=== PATIENT | female | born 1945 | race Caucasian/White ===

== ENCOUNTER 2019-07-11 15:59 | Emergency (ER) | payer MEDICARE ==
[2019-07-11] MEDS ORDERED: Furosemide 40 MG/4 ML VIAL ONE (16:25)
--- NOTE | 2019-07-11 16:40 | RAD ---
PORTABLE CHEST ONE VIEW: 07/11/19 at 4:31 p.m. HISTORY: Dyspnea. COMPARISON: None. FINDING/IMPRESSION: The heart size is enlarged. The aorta is tortuous. There is pulmonary vascular congestion. There is a telectatic change at the left lung base with probable accompanying left pleural effusion. No pneumot horaces are seen. POS: [facility]
[2019-07-11 16:52] LABS: #Basophils 0.1 thou/uL (0.0-0.2); #Eosinphils 0.2 thou/uL (0.0-0.7); #Lymphocytes 1.1 thou/uL (1.20-3.40); #Neutrophils 9.9 thou/uL (1.40-6.50); %Basophils 0.5 % (0.0-1.0); %Eosinophils 1.7 % (0.0-10.0); %Lymphocytes 8.9 % (21.0-51.0); Anisocytosis SLIGHT = 6-15 cells (100X) (0-5/hpf); Elliptocytes SLIGHT = 2-5 cells (100X) (0-1/hpf); Hemoglobin 7.8 g/dL (12.0-16.0); Hypochromia SLIGHT = 6-15 cells (100X) (0-5/hpf); MDiff Complete? YES; Mean Corpuscular HGB CONC 28.6 g/dL (32.0-36.0); Mean Corpuscular Hemoglobin 23.3 pg (27.0-31.0); Mean Corpuscular Volume 81.2 fL (78.0-98.0); Platelet Count 151 thou/uL (130-400); Poikilocytosis SLIGHT = 6-15 cells (100X) (0-5/hpf); RBC Distribution Width 18.6 % (11.5-14.5); Red Blood Cell (RBC) Count 3.36 mill/uL (4.20-5.40); Schistocytes SLIGHT = 2-5 cells (100X) (0-1/hpf); Tear Drops SLIGHT = 2-5 cells (100X) (0-1/hpf); White Blood Cell (WBC) Count 12.3 thou/uL (4.8-10.8)
[2019-07-11 16:54] LABS: ALT (SGPT) 12 U/L (8-55); AST (SGOT) 14 U/L (5-34); Albumin 3.7 g/dL (3.4-4.8); Alkaline Phosphatase 79 U/L (40-110); Anion Gap 17 mmol/L (10-20); BUN (Urea Nitrogen) 36 mg/dL (9.8-20.1); Bilirubin, Total 0.5 mg/dL (0.2-1.2); CK (CPK) 149 U/L (29-168); Calc. Creatinine Clearance 0 mL/min (70-130); Carbon Dioxide 26 mmol/L (23-31); Chloride 104 mmol/L (98-107); Estimated GFR-MDRD 16; Globulin 3.7 g/dL (2.4-3.5); Glucose 154 mg/dL (83-110); Potassium 3.7 mmol/L (3.5-5.1); Protein, Total 7.4 g/dL (6.0-8.3); Sodium 143 mmol/L (136-145)
[2019-07-11 18:40] LABS: Bilirubin Negative (Negative); Blood, Urine Negative (Negative); Clarity Clear (Clear); Glucose, Urine (Dipstick) Negative (Negative); Leukocyte Small (Negative); Nitrite Negative (Negative); Protein, Urine (Dipstick) 100 mg/dL (Neg-Trace); Urobilinogen 0.2 mg/dL (Less than 2)
[2019-07-11 18:42] LABS: Bacteria/HPF 3+ HPF (None Seen); RBC/HPF 0-3 HPF (0-3); Squamous Epithelial 0-3 HPF (0-3)
[2019-07-11 18:43] LABS: Other Microscopic Description C&S SET UP
== END 2019-07-11 18:22 | disposition short-term general hospital (02) ==
LOC: MADERS 15:59
DX: I13.0 Hypertensive heart and chronic kidney disease with heart failure and stage 1 through stage 4 chronic kidney disease, or unspecified chronic kidney disease (principal); I50.9 Heart failure, unspecified; N18.4 Chronic kidney disease, stage 4 (severe); R79.89 Other specified abnormal findings of blood chemistry; D50.9 Iron deficiency anemia, unspecified; E03.9 Hypothyroidism, unspecified; E66.9 Obesity, unspecified; J44.9 Chronic obstructive pulmonary disease, unspecified; Z79.1 Long term (current) use of non-steroidal anti-inflammatories (NSAID); Z79.899 Other long term (current) drug therapy; Z79.891 Long term (current) use of opiate analgesic
CPT/HCPCS: 36415; 51702; 71045; 80053; 81003; 81015; 82550; 82553; 83880; 84484; 85025; 85379; 87077; 87086; 87186; 93005; 94760; 96374; J1940

== ENCOUNTER 2019-08-09 16:30 | Inpatient (IN) | payer MEDICARE ==
[2019-08-09] MEDS ORDERED: Non-Formulary Item 1 EACH (Fluticasone/Umeclidin/Vilanter [Trelegy Ellipta 100-62.5-25] 1 INH PRN (18:31)
[2019-08-09] MEDS ORDERED: Budesonide 0.5 MG/2 ML NEB NEB SCH (19:00)
[2019-08-09] MEDS: Acetaminophen 500 MG TAB PO PRN (19:51)
[2019-08-09] MEDS: hydrALAZINE 25 MG TAB PO SCH ×2 (19:51→19:55)
[2019-08-09] MEDS: Apixaban 2.5 MG TAB PO SCH (20:12)
[2019-08-09] MEDS: Atorvastatin Calcium 10 MG TAB PO SCH (20:13)
[2019-08-09] MEDS: Pregabalin 50 MG CAP PO SCH (20:13)
[2019-08-09] MEDS ORDERED: MOMETASONE INH SCH (21:00)
[2019-08-09] MEDS ORDERED: Non-Formulary Item 1 EACH (Pravastatin Sodium [Pravastatin Sodium] 80 MG) PO SCH (21:00)
[2019-08-10] MEDS: hydrALAZINE 25 MG TAB PO SCH ×3 (06:02→20:20)
[2019-08-10] MEDS: Levothyroxine Sodium 75 MCG TAB PO SCH (06:02)
--- NOTE | 2019-08-10 08:35 | HP ---
PRIMARY CARE PHYSICIAN: Out of town/Dr. Farris [facility]. CARDIOLOGY: Dr. Reeves. GENERAL SURGEON: Dr. Geller. SIMULATION ANALYST: Dr. Brantley. REASON FOR ADMISSION: [facility] for skilled rehab after recent hospitalization. HISTORY OF THE PRESENT ILLNESS AND HOSPITAL COURSE: Ms. Carter is a very pleasant 73-year-old female with history of hypertension, hypothyroidism, CHF,residential use of anitcoagulant for Afib, dyslipidemia,diabetestype 2. and obesity. The patient was recently admitted to [facility] due to acute hypoxic respiratory failure on 07/11/2019. This was associated with acute on chronic renal failure and congestive heart failure exacerbation. Her most current 2D echo showed left ventricular ejection fraction of 45% to 55%. She was also treated with ceftriaxone for E coli urinary infection. The patient also received intravenous albumin for renal failure. While she was being treated in the hospital, she had an acute onset of shortness of breath that showed an x-ray of worsening pulmonary edema. She then required an ICU admission and was treated with BiPAP. She underwent an ultrasound-guided thoracentesis. The fluid revealed transudative. Cytology showed lymphocytes, reactive mesothelial cells and neutrophils. No malignant cells were identified. Her renal function continued to worsen at that time. She then underwent placement of right femoral vein triple-lumen Trialysis catheter for hemodialysis. She was initiated on hemodialysis with improvement in her symptoms. On July 31, she underwent right internal jugular cuffed tunneled hemodialysis catheter, left internal jugular line, exploration of right arm, right wrist antecubital area. It was reported that per ultrasound, the patient's were showing good veins, but veins were too small for fistula. After she was stabilized, she became physically deconditioned, needing further rehab for strengthening prior to going back to the home environment. The patient was then discharged on 2019. Prior to admission to [facility], the patient has had a renal dialysis in [facility]. She reported today upon admission that her left internal jugular line was removed and a new fistula was inserted on the left arm, needing followup appointment with Dr Geller, in 2-3 weeks per recommendations. When seen, the patient was with and later daughter came in. The patient was awake, alert, generally weak-looking. She reports that she could hardly get up on her own yet. She is max assist at this time in getting up and out of bed. Overall, she states that she feels a whole lot better. The patient reports an apparent issue regarding her breathing treatments. She states that she had never had any breathing treatments all her life and she reports that she is very uncomfortable taking the medicine all day long. She is currently on DuoNeb q.6 hours scheduled and Budesonide b.i.d. She is tolerant to room air at this time. No other issues reported. PAST MEDICAL HISTORY: Diabetes type 2, hypothyroidism, hypertension, CHF, dyslipidemia, and chronic anemia, obesity, chronic kidney disease. COPD, questionable, per records, the patient denies having one. FAMILY HISTORY: Noncontributory. SOCIAL HISTORY: She denies smoking, alcohol, or illicit drug use. PAST SURGICAL HISTORY: Cholecystectomy, hysterectomy. ALLERGIES: NKDA. TRANSFER MEDICATIONS: 1. Acetaminophen 1000 mg p.o. q.6 hours p.r.n. 2. Eliquis 2.5 mg p.o. b.i.d. 3. Aspirin 81 mg p.o. daily. 4. Atorvastatin 20 mg p.o. at bedtime. 5. Budesonide 0.5 mg neb b.i.d. 6. Cholecalciferol 1000 mg p.o. daily. 7. Retacrit 10,000 units IVP Monday, Monday, and Monday. 8. Fluticasone inhaler q.hourly p.r.n. 9. Hydralazine 25 mg t.i.d. 10. Insulin Lantus 10 units q.a.m. 11. DuoNeb q.6 scheduled. 12. Levothyroxine 75 mcg p.o. q.a.m. 13. Pravastatin 80 mg p.o. at bedtime. 14. Pregabalin 50 mg p.o. b.i.d. REVIEW OF SYSTEMS: GENERAL: Denies fever and chills. Reports fatigue and general weakness. No loss of appetite with intentional loss about 65 pounds after recent hospitalization. HEENT: No acute visual changes or hearing changes. RESPIRATORY: As per HPI. No active shortness of breath, wheezing, sputum production, pain with breathing. CARDIO: Denies chest pain, palpitations, reports improved generalized edema, reports dyspnea on exertion. No paroxysmal nocturnal dyspnea. GI: No nausea, vomiting, abdominal pain, rectal bleeding, diarrhea. Reports intermittent constipation. GENITOURINARY: No dysuria, hematuria, frequency, urgency, incontinence. MUSCULOSKELETAL: Denies joint effusion, erythema. SKIN: Reports multiple bruises from recent hospitalization and postop site on the left arm. No pruritus. No jaundice. NEURO: No focal numbness or focal weakness. Gait; unsteady secondary to general weakness. PSYCH: No depression, anxiety, or insomnia. PHYSICAL EXAMINATION: VITAL SIGNS: Temperature 98.3, pulse 57, respirations 16, O2 saturation 96% on room air. Blood pressure 132/63, weight 234 pounds, height 5 feet 8 inches. GENERAL: The patient is awake, alert, and oriented x3. Generally weak-looking, fatigued-looking elderly, comfortable in bed, not in distress. Family is at bedside during examination. HEENT: Normocephalic, atraumatic. PERRL. Intact EOM. Nonicteric sclerae. Oral mucosa is moist. NECK: Supple. No LAD. No thyromegaly. Flat JVD, CHEST: Normal excursion. Nonlabored breathing. LUNGS: Good air movements, symmetrical; Diminished bases. No rales. No crackles. No rhonchi. No wheezing. CARDIAC: RRR. Normal S1 and S2. Grade 2-3 murmurs. ABDOMEN: Obese, limiting exam, normoactive bowel sounds. Nontender. No rebound or guarding. Negative CVA tenderness bilaterally. EXTREMITIES: Lower extremities, no bipedal edema. Upper extremities with localized swelling on the left upper arm, where the new fistula is located. NEUROLOGIC: Nonfocal. DTRs 2+. Spontaneous speech. Alert and oriented x3. Gait unsteady. LABORATORY STUDIES: Most recent labs and tests; hemoglobin ranges between 8.5 to 8.9 with latest of 8.6 on 08/09/2019, hematocrit 27.9. Chemistry on 08/08, creatinine 4.46, estimated GFR 10. ASSESSMENT AND PLAN: 1. Severe debility. 2. Acute hypoxic respiratory failure, improved. 3. Acute on chronic systolic congestive heart failure, [place] heart Association Class III. 4. Escherichia coli urinary tract infection, treated. 5. Hyponatremia, improved to 134, as of 08/07/2019. 6. Diabetes type 2, insulin requiring. 7. Anemia. 8. Dyslipidemia. 9. Long standing Atrial fibrillation. On chronic use of Eliquis. . 10. End-stage renal disease, dialysis dependent.. 11. Hypothyroidism 12. Questionable chronic obstructive pulmonary disease 13. Unsteady gait. 14. Morbid obesity . 15. The patient is admitted to [facility] for skilled rehab. PT, OT eval and treat. Continue all current medications as modified per list. Dialysis M-- as previously scheduled. Family will take the patient for dialysis as scheduled. 16. To hold Inhaled steroid per patient's request. Duoneb Q 6 prn. 17. Routine CBC monitoring while in SNF. 18. Deep venous thrombosis prophylaxis: patient is already on Eliquis. 19. Further recommendations depending on the hospital course. ESTIMATED LENGTH OF STAY: 2 to 3 weeks. CODE STATUS: The patient reports FULL CODE. . Family is in agreement with the patient's wishes. The patient will be transferred to Dr. Marion's care in a.m, to cover in my absence. Job ID: [id number] [facility]
[2019-08-10] MEDS ORDERED: Prevnar 13-Val Conj/PF 0.5 ML SYRINGE IM ONE (09:00)
[2019-08-10] MEDS: Pregabalin 50 MG CAP PO SCH ×2 (09:03→20:22)
[2019-08-10] MEDS: Apixaban 2.5 MG TAB PO SCH ×2 (09:04→20:20)
[2019-08-10] MEDS: Aspirin Chewable 81 MG TAB PO SCH (09:04)
[2019-08-10] MEDS: Lantus 1000 UNITS/10 ML VIAL SC SCH (09:05)
[2019-08-10] MEDS: Atorvastatin Calcium 10 MG TAB PO SCH (20:20)
[2019-08-11] MEDS: hydrALAZINE 25 MG TAB PO SCH ×3 (03:34→19:16)
[2019-08-11] MEDS: Levothyroxine Sodium 75 MCG TAB PO SCH (05:11)
[2019-08-11] MEDS: Lantus 1000 UNITS/10 ML VIAL SC SCH (08:57)
[2019-08-11] MEDS: Apixaban 2.5 MG TAB PO SCH ×2 (08:58→20:47)
[2019-08-11] MEDS: Aspirin Chewable 81 MG TAB PO SCH (08:58)
[2019-08-11] MEDS: Pregabalin 50 MG CAP PO SCH ×2 (08:58→20:48)
[2019-08-11] MEDS: Acetaminophen 500 MG TAB PO PRN (19:16)
[2019-08-11] MEDS: Atorvastatin Calcium 10 MG TAB PO SCH (20:46)
[2019-08-12] MEDS: hydrALAZINE 25 MG TAB PO SCH ×3 (02:20→21:08)
[2019-08-12] MEDS: Levothyroxine Sodium 75 MCG TAB PO SCH (05:26)
[2019-08-12] MEDS ORDERED: EPOETIN ALFA-EPBX (NON-ESRD) 10,000 UNIT/ML VIAL IVP SCH (09:00)
[2019-08-12] MEDS: Pregabalin 50 MG CAP PO SCH ×2 (09:05→21:09)
[2019-08-12] MEDS: Apixaban 2.5 MG TAB PO SCH ×2 (09:06→21:08)
[2019-08-12] MEDS: Lantus 1000 UNITS/10 ML VIAL SC SCH (09:06)
[2019-08-12] MEDS: Aspirin Chewable 81 MG TAB PO SCH (09:06)
[2019-08-12] MEDS ORDERED: EPOETIN ALFA-EPBX (ESRD) 10,000 UNIT/ML VIAL IVP SCH (13:30)
--- NOTE | 2019-08-12 15:00 | PRG ---
DATE OF SERVICE: 08/12/2019 SUBJECTIVE: The patient is seen and examined at the bedside. Has no complaints at this time. Denies any chest pain or shortness of breath. She states that she has tolerated dialysis well. She still reports generalized weakness. OBJECTIVE: VITAL SIGNS: Temperature 97.1, pulse 51, respirations 18, oxygen 99% on room air, and blood pressure 156/69. GENERAL: The patient is alert and oriented x3, in no distress. HEENT: Extraocular muscles intact. Moist mucous membranes. CARDIOVASCULAR: Rate is slightly bradycardic, otherwise normal S1 and S2. No murmurs, rubs, or gallops. LUNGS: Clear to auscultation bilaterally. No crackles, wheezes, or rhonchi. EXTREMITIES: Moves all extremities well. Normal bulk and tone. No peripheral edema. NEUROLOGICAL: Cranial nerves II through XII intact grossly. PSYCH: No anxiety or depression noted. ASSESSMENT AND PLAN: The patient is a 73-year-old female with multiple medical comorbidities, who was admitted for physical rehabilitation. 1. Physical deconditioning. The patient will continue with physical therapy and occupational therapy, which have been ordered. 2. End-stage renal disease, on hemodialysis. Dialysis has been initiated on Monday, Wednesdays, and Fridays, and the patient has dialysis today. 3. Anemia of chronic renal disease. Continue the erythropoietin, which will be administered with dialysis. 4. Chronic obstructive pulmonary disease. The patient's home regimen has been resumed. 5. Diabetes. Continue home insulin regimen. 6. Hypothyroidism. Continue Synthroid. 7. Systolic chronic heart failure with reduced ejection fraction. The patient is stable from respiratory standpoint. 8. Dietary modifications. Speech therapy evaluated the patient over the weekend and dietary instructions are as follows, no straws, liquids, nectar thick extra sauce and gravy, small sips by cup. VitalStim was also recommended. Job ID: [id number]
[2019-08-12] MEDS: Atorvastatin Calcium 10 MG TAB PO SCH (21:09)
[2019-08-12] MEDS: Acetaminophen 500 MG TAB PO PRN (23:43)
[2019-08-13] MEDS: hydrALAZINE 25 MG TAB PO SCH ×3 (04:13→20:00)
[2019-08-13] MEDS: Acetaminophen 500 MG TAB PO PRN ×2 (04:43→20:09)
[2019-08-13] MEDS: Levothyroxine Sodium 75 MCG TAB PO SCH (05:04)
[2019-08-13] MEDS: Apixaban 2.5 MG TAB PO SCH ×2 (08:13→20:10)
[2019-08-13] MEDS: Pregabalin 50 MG CAP PO SCH ×2 (08:13→20:11)
[2019-08-13] MEDS: Lantus 1000 UNITS/10 ML VIAL SC SCH (08:15)
[2019-08-13] MEDS: Aspirin Chewable 81 MG TAB PO SCH (08:15)
[2019-08-13] MEDS: Atorvastatin Calcium 10 MG TAB PO SCH (20:09)
[2019-08-14] MEDS: hydrALAZINE 25 MG TAB PO SCH ×3 (03:58→22:17)
[2019-08-14 05:58] LABS: Hemoglobin 9.2 g/dL (12.0-16.0); Platelet Count 145 thou/uL (130-400)
[2019-08-14] MEDS: Levothyroxine Sodium 75 MCG TAB PO SCH (06:35)
[2019-08-14] MEDS: Apixaban 2.5 MG TAB PO SCH ×2 (07:57→22:14)
[2019-08-14] MEDS: Lantus 1000 UNITS/10 ML VIAL SC SCH (07:57)
[2019-08-14] MEDS: Pregabalin 50 MG CAP PO SCH ×2 (07:57→22:14)
[2019-08-14] MEDS: Aspirin Chewable 81 MG TAB PO SCH (07:57)
[2019-08-14] MEDS ORDERED: Dextrose 50% Abboject 50 ML SYRINGE SLOW IVP PRN (13:23)
[2019-08-14] MEDS ORDERED: Dextrose 5% in Water 1,000 ML IV PRN (13:23)
[2019-08-14] MEDS: Atorvastatin Calcium 10 MG TAB PO SCH (22:14)
[2019-08-15] MEDS: hydrALAZINE 25 MG TAB PO SCH ×3 (05:18→20:02)
[2019-08-15] MEDS: Levothyroxine Sodium 75 MCG TAB PO SCH (05:19)
[2019-08-15] MEDS: Apixaban 2.5 MG TAB PO SCH ×2 (08:34→20:02)
[2019-08-15] MEDS: Aspirin Chewable 81 MG TAB PO SCH (08:34)
[2019-08-15] MEDS: Pregabalin 50 MG CAP PO SCH ×2 (08:34→20:03)
[2019-08-15] MEDS: Lantus 1000 UNITS/10 ML VIAL SC SCH (08:35)
[2019-08-15] MEDS: HumaLOG 300 UNITS/3 ML VIAL SC PRN ×2 (12:18→17:08)
[2019-08-15 15:05] VITALS: BMI 36.3
[2019-08-15] MEDS: Atorvastatin Calcium 10 MG TAB PO SCH (20:02)
[2019-08-16] MEDS: hydrALAZINE 25 MG TAB PO SCH ×3 (04:57→21:15)
[2019-08-16] MEDS: Levothyroxine Sodium 75 MCG TAB PO SCH (05:00)
[2019-08-16] MEDS: Apixaban 2.5 MG TAB PO SCH ×2 (09:07→21:16)
[2019-08-16] MEDS: Aspirin Chewable 81 MG TAB PO SCH (09:08)
[2019-08-16] MEDS: Pregabalin 50 MG CAP PO SCH ×2 (09:08→21:19)
[2019-08-16] MEDS: Lantus 1000 UNITS/10 ML VIAL SC SCH (09:08)
[2019-08-16] MEDS: HumaLOG 300 UNITS/3 ML VIAL SC PRN ×2 (09:09→12:03)
[2019-08-16] MEDS: Atorvastatin Calcium 10 MG TAB PO SCH (21:16)
[2019-08-16] MEDS: Acetaminophen 500 MG TAB PO PRN (21:19)
[2019-08-17] MEDS: hydrALAZINE 25 MG TAB PO SCH ×3 (04:56→21:32)
[2019-08-17] MEDS: Levothyroxine Sodium 75 MCG TAB PO SCH (05:07)
[2019-08-17] MEDS: Pregabalin 50 MG CAP PO SCH ×2 (08:13→21:36)
[2019-08-17] MEDS: Lantus 1000 UNITS/10 ML VIAL SC SCH (08:14)
[2019-08-17] MEDS: Apixaban 2.5 MG TAB PO SCH ×2 (08:14→21:37)
[2019-08-17] MEDS: HumaLOG 300 UNITS/3 ML VIAL SC PRN (08:14)
[2019-08-17] MEDS: Aspirin Chewable 81 MG TAB PO SCH (08:14)
[2019-08-17] MEDS ORDERED: Dicyclomine 20 MG TAB PO PRN (20:10)
[2019-08-17] MEDS ORDERED: Docusate 100 MG CAP PO PRN (20:10)
[2019-08-17] MEDS: Acetaminophen 500 MG TAB PO PRN (21:35)
[2019-08-17] MEDS: Atorvastatin Calcium 10 MG TAB PO SCH (21:36)
[2019-08-17] MEDS ORDERED: Dicyclomine 10 MG CAP ONE ×2 (22:09→22:10)
[2019-08-17] MEDS: Dicyclomine 10 MG CAP PO PRN (22:18)
[2019-08-18] MEDS: Acetaminophen 500 MG TAB PO PRN ×2 (04:47→10:20)
[2019-08-18] MEDS: hydrALAZINE 25 MG TAB PO SCH ×2 (04:48→11:56)
[2019-08-18] MEDS: Levothyroxine Sodium 75 MCG TAB PO SCH (04:56)
[2019-08-18 06:58] VITALS: TEMP 97.9
[2019-08-18] MEDS: Dicyclomine 10 MG CAP PO PRN ×2 (07:55→12:55)
[2019-08-18] MEDS: Pregabalin 50 MG CAP PO SCH (07:56)
[2019-08-18] MEDS: Apixaban 2.5 MG TAB PO SCH (08:00)
[2019-08-18] MEDS: Aspirin Chewable 81 MG TAB PO SCH (08:00)
[2019-08-18] MEDS: Lantus 1000 UNITS/10 ML VIAL SC SCH (08:01)
[2019-08-18] MEDS ORDERED: Simethicone Chewable 80 MG TAB PO PRN (11:37)
[2019-08-18] MEDS: HumaLOG 300 UNITS/3 ML VIAL SC PRN (11:53)
[2019-08-18 11:57] VITALS: BP 120/54
[2019-08-18 12:14] LABS: ALT (SGPT) 8 U/L (8-55); AST (SGOT) 22 U/L (5-34); Albumin 2.9 g/dL (3.4-4.8); Alkaline Phosphatase 115 U/L (40-110); Anion Gap 21 mmol/L (10-20); BUN (Urea Nitrogen) 54 mg/dL (9.8-20.1); Bilirubin, Total 0.5 mg/dL (0.2-1.2); Calc. Creatinine Clearance 18 mL/min (70-130); Calcium 8.6 mg/dL (7.8-10.44); Carbon Dioxide 26 mmol/L (23-31); Chloride 96 mmol/L (98-107); Estimated GFR-MDRD 9; Glucose 185 mg/dL (83-110); Potassium 3.7 mmol/L (3.5-5.1); Protein, Total 5.9 g/dL (6.0-8.3); Sodium 139 mmol/L (136-145)
[2019-08-18 12:19] LABS: Anisocytosis MODERATE=16-30 cells (100X) (0-5/hpf); Hypochromia SLIGHT = 6-15 cells (100X) (0-5/hpf); MDiff Complete? YES; Mean Corpuscular HGB CONC 28.9 g/dL (32.0-36.0); Mean Corpuscular Hemoglobin 24.3 pg (27.0-31.0); Mean Platelet Volume 7.3 fL (7.4-10.4); Platelet Count 127 thou/uL (130-400); Polychromasia SLIGHT = 2-3 cells (100X) (0-2/hpf); RBC Distribution Width 21.7 % (11.5-14.5); Red Blood Cell (RBC) Count 3.72 mill/uL (4.20-5.40); White Blood Cell (WBC) Count 5.9 thou/uL (4.8-10.8)
--- NOTE | 2019-08-18 14:50 | CT ---
CT abdomen and pelvis noncontrast HISTORY: Abdomen and pelvic pain. Constipation. FINDINGS: Each renal collecting system, ureter, and urinary bladder are decompressed without stone ev ident. Lack of contrast limits evaluation for other abnormalities. Minimal left pleural fluid and basilar at electasis. The gallbladder surgically absent. Spleen measures up to 13.5 cm length. Nonspecific lymph nodes are apparent throughout the retroperitoneum. There is calcification within th e arterial structures. Prominent degenerative changes of the lumbar spine. The rectum is distended with fecal material up to 7.6 cm. For the degree of distention, there is rela tive thickening of the rectal wall. Small pockets of gas also extends into the thickened rectal wall. No free intraperitoneal gas. IMPRESSION: Fecal impaction with findings of stercoral proctitis and pneumatosis. Please consider toya gical evaluation. Small left pleural effusion. Mild splenomegaly. Cause is not evident. Atherosclerosis. Findings were called to ana Kirkpatrickgreenhouse specialist at [facility] at 1439 hours. Code CR.
[2019-08-18] MEDS ORDERED: Piperacillin/Tazobactam 2.25 GM in Sodium Chloride 0.9% 100 ML IVPB SCH (15:30)
[2019-08-18] MEDS ORDERED: Polyethylene Glycol 3350 17 GM Packet PO PRN (16:49)
[2019-08-18] MEDS ORDERED: Docusate 100 MG CAP PO SCH (21:00)
== END 2019-08-18 18:00 | disposition short-term general hospital (02) | DRG 291 ==
LOC: MADMS 16:30
PROVIDERS: ADMIT Family Medicine; ATTEND Family Medicine
DX: I13.2 Hypertensive heart and chronic kidney disease with heart failure and with stage 5 chronic kidney disease, or end stage renal disease (principal); N18.6 End stage renal disease; J96.01 Acute respiratory failure with hypoxia; E87.1 Hypo-osmolality and hyponatremia; I48.20 Chronic atrial fibrillation, unspecified; I50.22 Chronic systolic (congestive) heart failure; E11.22 Type 2 diabetes mellitus with diabetic chronic kidney disease; Z99.2 Dependence on renal dialysis; B96.20 Unspecified Escherichia coli [E. coli] as the cause of diseases classified elsewhere; E78.5 Hyperlipidemia, unspecified; E03.9 Hypothyroidism, unspecified; J44.9 Chronic obstructive pulmonary disease, unspecified; R26.9 Unspecified abnormalities of gait and mobility; E66.01 Morbid (severe) obesity due to excess calories; Z68.35 Body mass index [BMI] 35.0-35.9, adult; Z90.49 Acquired absence of other specified parts of digestive tract; Z90.710 Acquired absence of both cervix and uterus; Z79.01 Long term (current) use of anticoagulants; D63.1 Anemia in chronic kidney disease
CPT/HCPCS: 36416; 74176; 80053; 83735; 85007; 85014; 85018; 85027; 85049; 36415-59; J1815; J2543; J3490; J7626

== ENCOUNTER 2019-11-15 11:44 | Outpatient (CLI) | payer MEDICARE, OTHER | END 2019-11-15 11:45 | disposition home or self-care (01) | LOC: MADEKG 11:44 | PROVIDERS: ATTEND Family Medicine | DX: R00.1 Bradycardia, unspecified (principal) | CPT/HCPCS: 93005; 93010 ==

== ENCOUNTER 2020-10-18 12:28 | Emergency (ER) | payer MEDICARE ==
[2020-10-18 13:38] LABS: PTT 44.6 sec (22.9-36.1)
[2020-10-18 13:39] LABS: INR-International Normal Ratio 1.3; Prothrombin Time 16.8 sec (12.0-14.7)
[2020-10-18 13:40] LABS: Anisocytosis SLIGHT = 6-15 cells (100X) (0-5/hpf); Band 7 % (5-11); Eosinophils 1 % (0-10); Hemoglobin 7.1 g/dL (12.0-16.0); Hypochromia SLIGHT = 6-15 cells (100X) (0-5/hpf); Lymphocytes 17 % (21-51); MDiff Complete? YES; Mean Corpuscular Hemoglobin 33.6 pg (27.0-31.0); Mean Corpuscular Volume 104.7 fL (78.0-98.0); Mean Platelet Volume 7.6 fL (7.4-10.4); Monocytes 3 % (0-10); Neutrophil 72 % (42-75); Platelet Count 254 thou/uL (130-400); Platelet Morphology Comment Appears Adequate; RBC Distribution Width 15.6 % (11.5-14.5); Red Blood Cell (RBC) Count 2.11 mill/uL (4.20-5.40); White Blood Cell (WBC) Count 12.7 thou/uL (4.8-10.8)
[2020-10-18 13:53] LABS: D-Dimer Test 4.39 *mcg/mL (0.27-0.43)
[2020-10-18 13:56] LABS: ALT (SGPT) 15 U/L (8-55); AST (SGOT) 23 U/L (5-34); Albumin 3.3 g/dL (3.4-4.8); Alkaline Phosphatase 97 U/L (40-110); Anion Gap 29 mmol/L (10-20); BUN (Urea Nitrogen) 117 mg/dL (9.8-20.1); Bilirubin, Total 0.5 mg/dL (0.2-1.2); Calc. Creatinine Clearance 0 mL/min (70-130); Calcium 8.9 mg/dL (7.8-10.44); Carbon Dioxide 19 mmol/L (23-31); Chloride 91 mmol/L (98-107); Globulin 3.5 g/dL (2.4-3.5); Glucose 193 mg/dL (83-110); Protein, Total 6.8 g/dL (5.8-8.1); Sodium 134 mmol/L (136-145)
== END 2020-10-18 14:08 | disposition short-term general hospital (02) ==
LOC: MADERS 12:28
DX: M79.89 Other specified soft tissue disorders (principal); I11.0 Hypertensive heart disease with heart failure; I50.9 Heart failure, unspecified; E11.9 Type 2 diabetes mellitus without complications; Z79.4 Long term (current) use of insulin; J44.9 Chronic obstructive pulmonary disease, unspecified; E03.9 Hypothyroidism, unspecified; E66.9 Obesity, unspecified; Z79.01 Long term (current) use of anticoagulants; Z79.899 Other long term (current) drug therapy
CPT/HCPCS: 80053; 85025; 85379; 85610; 85730; 99284

== ENCOUNTER 2021-01-11 15:44 | Emergency (ER) | payer MEDICARE ==
[~2021-01-11 15:44] MED LIST: Sodium Chloride 0.9% 100 ML BAG ONE; Sodium Chloride 0.9% 50 ML BAG ONE
[2021-01-11] MEDS ORDERED: Acetaminophen 325 MG TAB ONE (17:03)
[2021-01-11] MEDS ORDERED: Sodium Chloride 0.9% 100 ML ONE (17:42)
[2021-01-11] MEDS ORDERED: Piperacillin/Tazobactam 2.25 GM VIAL ONE (17:42)
[2021-01-11 17:53] LABS: #Basophils 0.1 thou/uL (0.0-0.2); #Lymphocytes 0.9 thou/uL (1.20-3.40); #Monocytes 0.9 thou/uL (0.11-0.59); #Neutrophils 16.9 thou/uL (1.40-6.50); %Basophils 0.5 % (0.0-1.0); %Eosinophils 0.3 % (0.0-10.0); %Lymphocytes 4.8 % (21.0-51.0); %Monocytes 4.9 % (0.0-10.0); %Neutrophils 89.5 % (42.0-75.0); Anisocytosis SLIGHT = 6-15 cells (100X) (0-5/hpf); Hemoglobin 7.5 g/dL (12.0-16.0); Hypochromia SLIGHT = 6-15 cells (100X) (0-5/hpf); MDiff Complete? YES; Macrocytosis SLIGHT = 6-15 cells (100X) (0-5/hpf); Mean Corpuscular HGB CONC 32.3 g/dL (32.0-36.0); Mean Corpuscular Volume 105.1 fL (78.0-98.0); Mean Platelet Volume 7.6 fL (7.4-10.4); Platelet Count 223 thou/uL (130-400); Platelet Morphology Comment Appears Adequate; White Blood Cell (WBC) Count 18.8 thou/uL (4.8-10.8)
[2021-01-11] MEDS ORDERED: Dextrose 5% in Water 500 ML ONE (18:00)
[2021-01-11] MEDS ORDERED: Sodium Chloride 0.9% 500 ML ONE ×2 (18:00→18:04)
[2021-01-11] MEDS ORDERED: Naproxen 500 MG TAB ONE (18:00)
[2021-01-11 18:01] LABS: ALT (SGPT) 8 U/L (8-55); AST (SGOT) 9 U/L (5-34); Albumin 3.3 g/dL (3.4-4.8); Alkaline Phosphatase 69 U/L (40-110); Anion Gap 30 mmol/L (10-20); Bilirubin, Total 0.5 mg/dL (0.2-1.2); Calc. Creatinine Clearance 0 mL/min (70-130); Calcium 9.5 mg/dL (7.8-10.44); Carbon Dioxide 13 mmol/L (23-31); Chloride 92 mmol/L (98-107); Globulin 3.8 g/dL (2.4-3.5); Glucose 149 mg/dL (83-110); Lipase 64 U/L (8-78); Protein, Total 7.1 g/dL (5.8-8.1); Sodium 128 mmol/L (136-145)
[2021-01-11 18:19] LABS: BUN (Urea Nitrogen) Greater than 125 mg/dL (9.8-20.1); Potassium 6.9 mmol/L (3.5-5.1)
[2021-01-11 18:37] LABS: SARS-CoV-2 NAA Rapid Test Not Detected (NotDetected)
[2021-01-11] MEDS ORDERED: Calcium Gluc 4.6 MEQ/10 ML (100 MG/ML) ONE ×2 (18:57→19:05)
[2021-01-11] MEDS ORDERED: Albuterol Sulfate 2.5 mg/0.5 ml Neb ONE ×2 (19:38→19:47)
[2021-01-11 22:15] LABS: Bilirubin Negative (Negative); Blood, Urine Moderate (Negative); Clarity Cloudy (Clear); Glucose, Urine (Dipstick) Negative (Negative); Ketone, Urine Negative (Negative); Leukocyte Large (Negative); Nitrite Negative (Negative); Protein, Urine (Dipstick) 100 mg/dL (Neg-Trace); Specific Gravity, Urine 1.015 (1.005-1.030); Urobilinogen 0.2 mg/dL (Less than 2); pH, Urine 5.5 (5.0-9.0)
[2021-01-11 22:29] LABS: Bacteria/HPF 2+ HPF (None Seen); RBC/HPF 21-50 HPF (0-3); Transitional Epithelial 0-3 HPF (None Seen); WBC/HPF Greater Than 50 HPF (0-3)
== END 2021-01-11 22:05 | disposition short-term general hospital (02) ==
LOC: MADERS 15:44
DX: A41.9 Sepsis, unspecified organism (principal); R65.20 Severe sepsis without septic shock; N19 Unspecified kidney failure; Z20.822 Contact with and (suspected) exposure to COVID-19; D64.9 Anemia, unspecified; N39.0 Urinary tract infection, site not specified; Z99.2 Dependence on renal dialysis; I11.0 Hypertensive heart disease with heart failure; I50.9 Heart failure, unspecified; E66.9 Obesity, unspecified; E03.9 Hypothyroidism, unspecified; E11.9 Type 2 diabetes mellitus without complications; J44.9 Chronic obstructive pulmonary disease, unspecified; Z79.01 Long term (current) use of anticoagulants; Z79.899 Other long term (current) drug therapy; Z79.4 Long term (current) use of insulin
CPT/HCPCS: 71045; 82553; 83605; 83690; 84484; 87040; 87077; 87086; 87149 ×2; 87186; 87804 ×2; 94760; J2001; U0002; 36415; 80053; 81003; 81015; 84443; 85025; 96365; 96366; 96367; 96375; J2543; J3370; J3490; J7030; J7070; J7611

== ENCOUNTER 2021-09-12 09:55 | Emergency (ER) | payer MEDICARE ==
[2021-09-12] MEDS ORDERED: Fleet Enema 133 ML BOT ONE (10:47)
== END 2021-09-12 11:30 | disposition home or self-care (01) ==
LOC: MADERS 09:55
DX: K59.00 Constipation, unspecified (principal); I11.0 Hypertensive heart disease with heart failure; I50.9 Heart failure, unspecified; E11.9 Type 2 diabetes mellitus without complications; J44.9 Chronic obstructive pulmonary disease, unspecified; I48.91 Unspecified atrial fibrillation; E03.9 Hypothyroidism, unspecified; E66.9 Obesity, unspecified; Z79.01 Long term (current) use of anticoagulants; Z79.4 Long term (current) use of insulin; Z79.890 Hormone replacement therapy; Z79.899 Other long term (current) drug therapy
CPT/HCPCS: 99283

== ENCOUNTER 2021-11-25 13:22 | Emergency (ER) | payer MEDICARE ==
[2021-11-25 14:21] LABS: #Basophils 0.1 thou/uL (0.0-0.2); #Eosinphils 0.4 thou/uL (0.0-0.7); #Lymphocytes 1.8 thou/uL (1.20-3.40); #Monocytes 0.7 thou/uL (0.11-0.59); #Neutrophils 8.2 thou/uL (1.40-6.50); %Basophils 0.8 % (0.0-1.0); %Eosinophils 3.9 % (0.0-10.0); %Lymphocytes 15.9 % (21.0-51.0); %Monocytes 6.5 % (0.0-10.0); Hemoglobin 9.2 g/dL (12.0-16.0); Mean Corpuscular Hemoglobin 31.3 pg (27.0-31.0); Mean Platelet Volume 7.1 fL (7.4-10.4); Platelet Count 224 thou/uL (130-400); RBC Distribution Width 15.1 % (11.5-14.5); Red Blood Cell (RBC) Count 2.94 mill/uL (4.20-5.40); White Blood Cell (WBC) Count 11.3 thou/uL (4.8-10.8)
[2021-11-25 14:30] LABS: INR-International Normal Ratio 1.3; Prothrombin Time 16.5 sec (12.0-14.7)
[2021-11-25 14:31] LABS: PTT 44.3 sec (22.9-36.1)
== END 2021-11-25 15:20 | disposition home or self-care (01) ==
LOC: MADERS 13:22
DX: T82.838A Hemorrhage due to vascular prosthetic devices, implants and grafts, initial encounter (principal); I11.0 Hypertensive heart disease with heart failure; I50.9 Heart failure, unspecified; J44.9 Chronic obstructive pulmonary disease, unspecified; E11.9 Type 2 diabetes mellitus without complications; E03.9 Hypothyroidism, unspecified; Z79.899 Other long term (current) drug therapy
CPT/HCPCS: 36415; 85025; 85610; 85730; 99284

== ENCOUNTER 2021-11-28 10:48 | Emergency (ER) | payer MEDICARE ==
[2021-11-28] MEDS ORDERED: Calcium Gluc 4.6 MEQ/10 ML (100 MG/ML) ONE (11:19)
[2021-11-28 11:25] LABS: #Basophils 0.1 thou/uL (0.0-0.2); #Eosinphils 0.4 thou/uL (0.0-0.7); #Monocytes 0.3 thou/uL (0.11-0.59); #Neutrophils 7.1 thou/uL (1.40-6.50); %Basophils 0.6 % (0.0-1.0); %Eosinophils 4.5 % (0.0-10.0); %Lymphocytes 11.6 % (21.0-51.0); %Monocytes 3.7 % (0.0-10.0); %Neutrophils 79.6 % (42.0-75.0); Hemoglobin 7.9 g/dL (12.0-16.0); Mean Corpuscular HGB CONC 31.6 g/dL (32.0-36.0); Mean Corpuscular Hemoglobin 31.6 pg (27.0-31.0); Mean Corpuscular Volume 100.1 fL (78.0-98.0); Mean Platelet Volume 6.9 fL (7.4-10.4); Platelet Count 208 thou/uL (130-400); RBC Distribution Width 14.5 % (11.5-14.5); White Blood Cell (WBC) Count 8.9 thou/uL (4.8-10.8)
[2021-11-28 11:38] LABS: Phosphorus 6.4 mg/dL (2.3-4.7)
[2021-11-28 11:40] LABS: ALT (SGPT) 11 U/L (8-55); AST (SGOT) 10 U/L (5-34); Albumin 3.3 g/dL (3.4-4.8); Alkaline Phosphatase 86 U/L (40-110); Anion Gap 25 mmol/L (10-20); Bilirubin, Total 0.4 mg/dL (0.2-1.2); Calc. Creatinine Clearance 0 mL/min (70-130); Calcium 9.7 mg/dL (7.8-10.44); Carbon Dioxide 20 mmol/L (23-31); Chloride 99 mmol/L (98-107); Globulin 3.9 g/dL (2.4-3.5); Glucose 201 mg/dL (83-110); Magnesium 2.4 mg/dL (1.6-2.6); Potassium 5.7 mmol/L (3.5-5.1); Protein, Total 7.2 g/dL (5.8-8.1); Sodium 138 mmol/L (136-145)
[2021-11-28 12:03] LABS: BUN (Urea Nitrogen) 159 mg/dL (9.8-20.1)
== END 2021-11-28 12:20 | disposition short-term general hospital (02) ==
LOC: MADERS 10:48
DX: T82.590A Other mechanical complication of surgically created arteriovenous fistula, initial encounter (principal); D64.9 Anemia, unspecified; E87.5 Hyperkalemia; E83.39 Other disorders of phosphorus metabolism; E87.2 Acidosis; I11.0 Hypertensive heart disease with heart failure; I50.9 Heart failure, unspecified; E11.9 Type 2 diabetes mellitus without complications; E03.9 Hypothyroidism, unspecified; J44.9 Chronic obstructive pulmonary disease, unspecified; Z79.899 Other long term (current) drug therapy
CPT/HCPCS: 80053; 83735; 84100; 85025; 93005; J0610; 36415; 96374; J7050

== ENCOUNTER 2021-12-13 18:57 | Emergency (ER) | payer MEDICARE ==
[2021-12-13 19:21] LABS: #Basophils 0.1 thou/uL (0.0-0.2); #Eosinphils 0.2 thou/uL (0.0-0.7); #Lymphocytes 0.9 thou/uL (1.20-3.40); #Monocytes 0.7 thou/uL (0.11-0.59); #Neutrophils 8.4 thou/uL (1.40-6.50); %Basophils 0.7 % (0.0-1.0); %Eosinophils 2.2 % (0.0-10.0); %Lymphocytes 8.3 % (21.0-51.0); %Monocytes 6.9 % (0.0-10.0); %Neutrophils 81.9 % (42.0-75.0); Hemoglobin 6.8 g/dL (12.0-16.0); Mean Corpuscular HGB CONC 31.6 g/dL (32.0-36.0); Mean Corpuscular Hemoglobin 30.7 pg (27.0-31.0); Mean Corpuscular Volume 97.3 fL (78.0-98.0); Mean Platelet Volume 7.2 fL (7.4-10.4); Platelet Count 201 thou/uL (130-400); RBC Distribution Width 16.7 % (11.5-14.5); White Blood Cell (WBC) Count 10.2 thou/uL (4.8-10.8)
[2021-12-13 19:24] LABS: INR-International Normal Ratio 1.2; Prothrombin Time 15.6 sec (12.0-14.7)
[2021-12-13 19:26] LABS: PTT 49.6 sec (22.9-36.1)
[2021-12-13 19:30] LABS: ALT (SGPT) Less than 7 U/L (8-55); AST (SGOT) 13 U/L (5-34); Albumin 3.2 g/dL (3.4-4.8); Alkaline Phosphatase 79 U/L (40-110); Anion Gap 15 mmol/L (10-20); BUN (Urea Nitrogen) 44 mg/dL (9.8-20.1); Bilirubin, Total 0.5 mg/dL (0.2-1.2); Calc. Creatinine Clearance 0 mL/min (70-130); Calcium 9.1 mg/dL (7.8-10.44); Carbon Dioxide 30 mmol/L (23-31); Chloride 97 mmol/L (98-107); Estimated GFR 8; Globulin 4.2 g/dL (2.4-3.5); Glucose 140 mg/dL (83-110); Potassium 4.5 mmol/L (3.5-5.1); Protein, Total 7.4 g/dL (5.8-8.1); Sodium 137 mmol/L (136-145)
[2021-12-13 19:52] LABS: CKMB 1.5 ng/mL (0-6.6)
== END 2021-12-13 22:26 | disposition short-term general hospital (02) ==
LOC: MADERS 18:57
DX: T80.89XA Other complications following infusion, transfusion and therapeutic injection, initial encounter (principal); D64.9 Anemia, unspecified; R29.703 NIHSS score 3; R29.701 NIHSS score 1; R29.700 NIHSS score 0; R29.810 Facial weakness; R27.8 Other lack of coordination; I49.8 Other specified cardiac arrhythmias; I13.0 Hypertensive heart and chronic kidney disease with heart failure and stage 1 through stage 4 chronic kidney disease, or unspecified chronic kidney disease; E11.22 Type 2 diabetes mellitus with diabetic chronic kidney disease; N18.9 Chronic kidney disease, unspecified; I50.9 Heart failure, unspecified; E03.9 Hypothyroidism, unspecified; J44.9 Chronic obstructive pulmonary disease, unspecified; I48.91 Unspecified atrial fibrillation; E66.9 Obesity, unspecified; Z68.45 Body mass index [BMI] 70 or greater, adult; Z79.4 Long term (current) use of insulin; Z99.2 Dependence on renal dialysis; Z79.82 Long term (current) use of aspirin; Z79.01 Long term (current) use of anticoagulants; Z79.899 Other long term (current) drug therapy; Z95.0 Presence of cardiac pacemaker
CPT/HCPCS: 36416; 70450; 80053; 82553; 84484; 85025; 85610; 85730; 93005

== ENCOUNTER 2022-01-13 17:06 | Outpatient (CLI) | payer MEDICARE ==
[2022-01-13 18:33] LABS: #Basophils 0.1 thou/uL (0.0-0.2); #Eosinphils 0.3 thou/uL (0.0-0.7); #Lymphocytes 1.7 thou/uL (1.20-3.40); #Monocytes 0.5 thou/uL (0.11-0.59); #Neutrophils 5.9 thou/uL (1.40-6.50); %Basophils 0.8 % (0.0-1.0); %Eosinophils 3.4 % (0.0-10.0); %Lymphocytes 20.1 % (21.0-51.0); %Monocytes 6.1 % (0.0-10.0); %Neutrophils 69.6 % (42.0-75.0); Hemoglobin 9.5 g/dL (12.0-16.0); MDiff Complete? YES; Macrocytosis SLIGHT = 6-15 cells (100X) (0-5/hpf); Mean Corpuscular HGB CONC 30.4 g/dL (32.0-36.0); Mean Corpuscular Hemoglobin 32.6 pg (27.0-31.0); Mean Corpuscular Volume 107.4 fL (78.0-98.0); Mean Platelet Volume 8.8 fL (7.4-10.4); Platelet Count 176 thou/uL (130-400); Polychromasia SLIGHT = 2-3 cells (100X) (0-2/hpf); RBC Distribution Width 19.6 % (11.5-14.5); White Blood Cell (WBC) Count 8.4 thou/uL (4.8-10.8)
== END 2022-01-13 17:07 | disposition home or self-care (01) ==
LOC: MADLABSP 17:06
PROVIDERS: ATTEND Family Medicine
DX: D64.9 Anemia, unspecified (principal)
CPT/HCPCS: 82728; 85025

== ENCOUNTER 2022-01-25 07:30 | Emergency (ER) | payer MEDICARE ==
[2022-01-25 08:05] LABS: #Eosinphils 0.2 thou/uL (0.0-0.7); #Lymphocytes 1.5 thou/uL (1.20-3.40); #Monocytes 0.5 thou/uL (0.11-0.59); %Basophils 0.6 % (0.0-1.0); %Eosinophils 3.2 % (0.0-10.0); %Lymphocytes 20.2 % (21.0-51.0); %Monocytes 7.3 % (0.0-10.0); %Neutrophils 68.7 % (42.0-75.0); Hemoglobin 9.6 g/dL (12.0-16.0); Mean Corpuscular Hemoglobin 33.2 pg (27.0-31.0); Mean Corpuscular Volume 107.2 fL (78.0-98.0); Mean Platelet Volume 8.6 fL (7.4-10.4); Platelet Count 179 thou/uL (130-400); RBC Distribution Width 19.7 % (11.5-14.5); White Blood Cell (WBC) Count 7.2 thou/uL (4.8-10.8)
[2022-01-25 08:09] LABS: Anisocytosis SLIGHT = 6-15 cells (100X) (0-5/hpf)
[2022-01-25 08:10] LABS: Macrocytosis SLIGHT = 6-15 cells (100X) (0-5/hpf); Platelet Morphology Comment Appears Adequate
[2022-01-25 08:12] LABS: INR-International Normal Ratio 1.5; Prothrombin Time 18.1 sec (12.0-14.7)
[2022-01-25 08:14] LABS: ALT (SGPT) 14 U/L (8-55); AST (SGOT) 12 U/L (5-34); Albumin 3.6 g/dL (3.4-4.8); Alkaline Phosphatase 88 U/L (40-110); Anion Gap 19 mmol/L (10-20); BUN (Urea Nitrogen) 37 mg/dL (9.8-20.1); Bilirubin, Total 0.5 mg/dL (0.2-1.2); Calc. Creatinine Clearance 0 mL/min (70-130); Calcium 9.2 mg/dL (7.8-10.44); Carbon Dioxide 28 mmol/L (23-31); Chloride 99 mmol/L (98-107); Estimated GFR 6; Globulin 4.2 g/dL (2.4-3.5); Glucose 240 mg/dL (83-110); Potassium 4.1 mmol/L (3.5-5.1); Protein, Total 7.8 g/dL (5.8-8.1); Sodium 142 mmol/L (136-145)
[2022-01-25] MEDS ORDERED: Boostrix 0.5 ML (Tdap) VIAL ONE (08:31)
[2022-01-25] MEDS ORDERED: Acetaminophen 325 MG TAB ONE (08:44)
== END 2022-01-25 09:12 | disposition home or self-care (01) ==
LOC: MADERS 07:30
DX: S61.412A Laceration without foreign body of left hand, initial encounter (principal); S61.411A Laceration without foreign body of right hand, initial encounter; S81.012A Laceration without foreign body, left knee, initial encounter; S81.011A Laceration without foreign body, right knee, initial encounter; S05.12XA Contusion of eyeball and orbital tissues, left eye, initial encounter; I13.0 Hypertensive heart and chronic kidney disease with heart failure and stage 1 through stage 4 chronic kidney disease, or unspecified chronic kidney disease; E11.22 Type 2 diabetes mellitus with diabetic chronic kidney disease; N18.9 Chronic kidney disease, unspecified; I50.9 Heart failure, unspecified; I48.91 Unspecified atrial fibrillation; E03.9 Hypothyroidism, unspecified; J44.9 Chronic obstructive pulmonary disease, unspecified; E66.9 Obesity, unspecified; W18.30XA Fall on same level, unspecified, initial encounter; Y92.009 Unspecified place in unspecified non-institutional (private) residence as the place of occurrence of the external cause; Z23 Encounter for immunization; Z79.4 Long term (current) use of insulin; Z99.2 Dependence on renal dialysis; Z79.01 Long term (current) use of anticoagulants; Z79.82 Long term (current) use of aspirin; Z79.899 Other long term (current) drug therapy; Z86.73 Personal history of transient ischemic attack (TIA), and cerebral infarction without residual deficits
CPT/HCPCS: 70450; 70486; 72125; 80053; 85025; 85610; 85730; 90471; 90715; 93005; 94760

== ENCOUNTER 2022-06-12 10:32 | Emergency (ER) | payer MEDICARE ==
[2022-06-12 12:07] LABS: #Basophils 0.1 thou/uL (0.0-0.2); #Eosinphils 0.2 thou/uL (0.0-0.7); #Lymphocytes 1.4 thou/uL (1.20-3.40); #Monocytes 0.6 thou/uL (0.11-0.59); #Neutrophils 8.1 thou/uL (1.40-6.50); %Basophils 0.8 % (0.0-1.0); %Eosinophils 1.9 % (0.0-10.0); %Lymphocytes 13.4 % (21.0-51.0); %Monocytes 5.3 % (0.0-10.0); %Neutrophils 78.6 % (42.0-75.0); Hemoglobin 9.3 g/dL (12.0-16.0); Hypochromia SLIGHT = 6-15 cells (100X) (0-5/hpf); MDiff Complete? YES; Macrocytosis SLIGHT = 6-15 cells (100X) (0-5/hpf); Mean Corpuscular HGB CONC 33.3 g/dL (32.0-36.0); Mean Corpuscular Hemoglobin 34.2 pg (27.0-31.0); Mean Corpuscular Volume 102.8 fl (78.0-98.0); Mean Platelet Volume 7.5 fL (7.4-10.4); Platelet Count 232 10x3/uL (130-400); Platelet Morphology Comment Appears Adequate; RBC Distribution Width 13.6 % (11.5-14.5); Red Blood Cell (RBC) Count 2.73 mill/uL (4.20-5.40); White Blood Cell (WBC) Count 10.3 10x3/uL (4.8-10.8)
[2022-06-12 12:12] LABS: ALT (SGPT) Less than 7 U/L (8-55); AST (SGOT) 11 U/L (5-34); Albumin 3.4 g/dL (3.4-4.8); Alkaline Phosphatase 93 U/L (40-110); Anion Gap 24 mmol/L (10-20); BUN (Urea Nitrogen) 54 mg/dL (9.8-20.1); Bilirubin, Total 0.5 mg/dL (0.2-1.2); Calc. Creatinine Clearance 0 mL/min (70-130); Calcium 8.9 mg/dL (7.8-10.44); Carbon Dioxide 22 mmol/L (23-31); Chloride 93 mmol/L (98-107); Estimated GFR 5; Globulin 4.1 g/dL (2.4-3.5); Glucose 166 mg/dL (83-110); Potassium 3.6 mmol/L (3.5-5.1); Protein, Total 7.5 g/dL (5.8-8.1); Sodium 135 mmol/L (136-145)
[2022-06-12 12:44] LABS: Bilirubin Negative (Negative); Blood, Urine Large (Negative); Clarity Slightly Cloudy (Clear); Glucose, Urine (Dipstick) Negative (Negative); Ketone, Urine Negative (Negative); Leukocyte Large (Negative); Nitrite Negative (Negative); Protein, Urine (Dipstick) 100 mg/dL (Neg-Trace); Urobilinogen 0.2 mg/dL (Less than 2)
[2022-06-12 12:50] LABS: Bacteria/HPF 4+ HPF (None Seen); Squamous Epithelial 0-3 HPF (0-3); WBC/HPF Greater Than 50 HPF (0-3)
[2022-06-12] MEDS ORDERED: Cephalexin 500 MG CAP ONE (13:08)
[2022-06-12] MEDS ORDERED: Dexamethasone 4 MG TAB ONE (15:26)
== END 2022-06-12 13:25 | disposition home or self-care (01) ==
LOC: MADERS 10:32
DX: K62.5 Hemorrhage of anus and rectum (principal); N39.0 Urinary tract infection, site not specified; I13.2 Hypertensive heart and chronic kidney disease with heart failure and with stage 5 chronic kidney disease, or end stage renal disease; E11.22 Type 2 diabetes mellitus with diabetic chronic kidney disease; N18.6 End stage renal disease; I50.9 Heart failure, unspecified; E66.9 Obesity, unspecified; J44.9 Chronic obstructive pulmonary disease, unspecified; Z99.2 Dependence on renal dialysis
CPT/HCPCS: 74022; 80053; 81003; 81015; 85025; J8540

== ENCOUNTER 2023-07-06 08:40 | Emergency (ER) | payer MEDICARE ==
[2023-07-06] MEDS ORDERED: Acetaminophen 500 MG TAB ONE (09:34)
== END 2023-07-06 11:30 | disposition home or self-care (01) ==
LOC: MADERS 08:40
DX: M17.12 Unilateral primary osteoarthritis, left knee (principal); E11.22 Type 2 diabetes mellitus with diabetic chronic kidney disease; I13.2 Hypertensive heart and chronic kidney disease with heart failure and with stage 5 chronic kidney disease, or end stage renal disease; N18.6 End stage renal disease; Z99.2 Dependence on renal dialysis; Z79.4 Long term (current) use of insulin; J44.9 Chronic obstructive pulmonary disease, unspecified; E03.9 Hypothyroidism, unspecified; Z79.899 Other long term (current) drug therapy